=== PATIENT | female | born 1995 | race Two or more races ===

== ENCOUNTER 2024-02-18 19:37 | Emergency (ER) | payer OTHER ==
[~2024-02-18] VITALS: Ht 157.5 cm; Wt 52.2 kg
[2024-02-18] MEDS ORDERED: ORPHENADRINE CITRATE 30 MG/ML AMPUL IM STA (21:24)
[2024-02-18] MEDS ORDERED: KETOROLAC TROMETHAMINE 15 MG VIAL IM STA (21:24)
[2024-02-18] MEDS ORDERED: ORPHENADRINE CITRATE 30 MG/ML AMPUL ONE (21:28)
[2024-02-18] MEDS ORDERED: KETOROLAC TROMETHAMINE 30 MG VIAL ONE ×2 (21:29→22:55)
[2024-02-18 21:58] LABS: URINE APPEARANCE Cloudy; URINE BILIRRUBIN Negative (NEGATIVE); URINE BLOOD Small; URINE COLOR Yellow; URINE GLUCOSE Negative (NEGATIVE); URINE LEUKOCYTE Large; URINE NITRATE Negative
[2024-02-18 22:01] LABS: URINE BACTERIA 1886.1 uL (0.0-1933); URINE EPITHELIAL CELLS 3.2 uL (0.0-38.8); URINE RBC 108.2 uL (0.0-20.8)
[2024-02-18 22:02] LABS: URINE PROTEIN 100 (NEGATIVE)
== END 2024-02-19 00:28 | disposition home or self-care (01) ==
LOC: ER 19:39
PROVIDERS: Emergency Medicine
DX: N39.0 Urinary tract infection, site not specified (principal)